=== PATIENT | female | born 1980 | race African-American/Black ===

== ENCOUNTER 2022-04-29 12:14 | Emergency (ER) | payer SELFPAY ==
[~2022-04-29] VITALS: Ht 165.1 cm; Wt 75.0 kg
[2022-04-29 17:53] LABS: BASOPHILS % 0.6 % (0.0-2.0); EOSINOPHILS % 2.1 % (0.0-5.0); HEMATOCRIT. 44.6 % (36.0-48.0); HEMOGLOBIN. 14.2 g/dL (12.0-16.0); LYMPHOCYTES % 29.5 % (20.0-50.0); MEAN CORPUSCULAR HEMOGLOBIN 25.7 pg (28.0-32.0); MEAN CORPUSCULAR VOLUME 80.4 fL (81.0-99.0); MEAN PLATELET VOLUME 9.3 fl (7.4-10.4); MONOCYTES % 6.5 % (2.0-8.0); NEUTROPHILS % 61.3 % (40.0-76.0); PLATELET 225 x1000/uL (130-400); RED BLOOD CELL COUNT 5.54 mill/uL (4.2-5.4); RED CELL DISTRIBUTION WIDTH 14.9 % (11.6-14.6)
[2022-04-29 17:58] LABS: CHLORIDE 108 mEq/L (98-107)
[2022-04-29] MEDS ORDERED: FAMOTIDINE 20MG TABLET PO ONE (19:15)
[2022-04-29] MEDS ORDERED: MAGNESIUM/ALUMINUM HYDROXIDE/SIMETHICONE 30ML UDC PO ONE (19:15)
[2022-04-29] MEDS ORDERED: ONDANSETRON 4MG ODT PO ONE (19:15)
[2022-04-29] MEDS ORDERED: FAMOTIDINE 20MG TABLET PO NR (23:15)
[2022-04-29] MEDS ORDERED: MAGNESIUM/ALUMINUM HYDROXIDE/SIMETHICONE 30ML UDC PO NR (23:15)
[2022-04-29] MEDS ORDERED: ONDANSETRON 4MG ODT PO NR (23:15)
[2022-04-30] MEDS ORDERED: FAMO-135 MT (00:37)
[2022-04-30] MEDS ORDERED: MAG-55 MT (00:37)
[2022-04-30] MEDS ORDERED: ONDA4TAB11 PO (00:37)
[2022-04-30 00:53] VITALS: BP 138/62
== END 2022-04-30 00:54 | disposition home or self-care (01) ==
LOC: ER 12:14
DX: R10.13 Epigastric pain (principal); I10 Essential (primary) hypertension; Z95.0 Presence of cardiac pacemaker
CPT/HCPCS: 36415; 76705; 80053; 83690; 85025; 99284; Q0162